=== PATIENT | female | born 2000 | race Caucasian/White ===

== ENCOUNTER 2020-07-26 11:43 | Outpatient (REF) | payer SELFPAY | END 2020-07-26 11:44 | disposition home or self-care (01) | LOC: HO.LAB 11:43 | PROVIDERS: Visit Provider Internal Medicine | DX: Z20.828 Contact with and (suspected) exposure to other viral communicable diseases (principal) | CPT/HCPCS: C9803; U0003 ==

== ENCOUNTER 2020-11-03 08:57 | Outpatient (REF) | payer OTHER, SELFPAY ==
--- NOTE | ~2020-11-03 | US_ITS ---
EXAMINATION: US DIAGNOSTIC ULTRASOUND BREAST, RIGHT CLINICAL INFORMATION: Right breast lump 3:00 position felt by patient's doctor.. COMPARISON: None. TECHNIQUE: Ultrasound of the breast is performed with real-time posey scale imaging and color Doppler. FINDINGS: There is no focal suspicious finding. There is no solid mass, architectural abnormality, duct ectasia, or edema in the soft tissue planes. Results are discussed with the patient at time of visit. US/US breast RT limited IMPRESSION: No suspicious right breast ultrasound abnormality detected. ASSESSMENT: BI-RADS 1: Negative RECOMMENDATION: Clinical management This patient's information was entered into a reminder system with a target due date for their next mammogram.
== END 2020-11-03 08:58 | disposition home or self-care (01) ==
LOC: HO.MAMMO 08:57
PROVIDERS: PCP Internal Medicine; Visit Provider Advanced Practice Midwife
DX: N63.15 Unspecified lump in the right breast, overlapping quadrants (principal)
CPT/HCPCS: 76642